=== PATIENT | female | born 1970 | race Caucasian/White ===

== ENCOUNTER 2016-04-28 19:57 | Observation (INO) ==
[2016-04-28] MEDS ORDERED: 0.9 % Sodium Chloride 1,000 ML IVC ONE (20:23)
--- NOTE | 2016-04-28 20:23 | Emergency Department Note ---
Disposition Clinical Impression: Near syncope, Abnormal liver function tests, History of cardiac arrhythmia Disposition: Admitted As Inpatient Referrals: NO,PCP [Non-Partnered Physician] - Forms: ED Satisfaction Letter General Adult HPI - General Chief complaint: ED Neuro Symptoms/Deficit Stated complaint: syncope x 4/difficulty forming words Time Seen by Provider: 04/28/16 20:20 Source: patient Limitations: no limitations - History of Present Illness HPI Narrative: 46-year-old female reports in the emergency department complaining of nearly passing out several times today. Her symptomatology started today. She states she feels like she is going to pass out but then catches herself before she completely passed out. She reports during these. She feels like she has trouble forming her words but afterwards she is able to speak normally. The patient denies any headache neck stiffness rash or fever. She has not fallen or been injured. There is no history of unilateral arm or leg weakness or numbness. There is no history of slurred speech or confusion. The patient denies chest pain shortness of breath abdominal pain vomiting or diarrhea. There is no history of currently. She is not known to be diabetic. She has had no acute back pain. There is no history of convulsion. The patient describes 4 separate events today where she was feeling like she was going to collapse and where she could not speak momentarily and then recovered without falling. The patient denies any major medical history apart from trigeminy. She denies coronary artery disease PE DVT or previous cancer. There is no history of hypertension hyperlipidemia or previous CVA. The patient has been able to ambulate without difficulty. There is no history of eliel dysarthria or slurring of the speech or drooping of the face. Her symptomatology started this morning about 8:30 in the morning. She reports 4 separate events the last one being about an hour ago. She has recovered and feels well after each event, including currently. The patient does describe a history of baseline anxiety with no exacerbations. Onset (ago): hour(s) Pain Scale: 0 - Related Data Home Medications Medication Instructions Recorded Confirmed Mucinex 04/04/15 Previous Rx's Medication Instructions Recorded HYDROcodone BIT/Homatropine LQ 5 mg PO Q6H PRN #120 ml 04/04/15 [Hycodan Syrup] Levofloxacin [Levaquin] 500 mg PO DAILY #10 tablet 04/04/15 Allergies Allergy/AdvReac Type Severity Reaction Status Date / Time Sulfa (Sulfonamide Allergy Muscle Pain Verified 04/28/16 20:07 Antibiotics) All systems ED: reviewed and negative except as stated. 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 Absent: scleral icterus, conjunctival injection, nystagmus, miosis, mydriasis, periorbital swelling - ENT ENT exam: normal exam, normal oropharynx, mucous membranes moist, TM's normal bilaterally, normal external ear exam - Neck Neck exam: Present: normal inspection, full ROM, trachea midline. Absent: tenderness, meningismus - Chest Chest inspection: Present: symmetric chest wall rise. Absent: tenderness - Respiratory Respiratory exam: Present: normal lung sounds bilaterally. Absent: respiratory distress - Cardiovascular Cardiovascular exam: Present: regular rate, normal rhythm, normal heart sounds - Abdominal Exam Abdominal exam: Present: soft, Non-Tender, normal bowel sounds. Absent: tenderness, distention, guarding, rebound, rigidity, pulsatile mass - Extremities Exam Extremities exam: Present: normal inspection, full ROM, normal capillary refill. Absent: tenderness, pedal edema, joint swelling, calf tenderness - Expanded Lower Extremity Exam Neurovascular/Tendon exam: Present: normal capillary refill, other (4 extremities warm and well perfused without cyanosis or edema.). Absent: motor deficit, sensory deficit, tendon deficit, extremity cold to touch, pallor - Back Exam Back exam: Present: normal inspection, full ROM. Absent: tenderness, CVA tenderness (R), CVA tenderness (L), vertebral tenderness - Neurological Exam Neurological exam: Present: alert, oriented X3, CN II-XII intact, normal gait. Absent: motor sensory deficit - Psychiatric Psychiatric exam: Present: normal affect, normal mood - Skin Skin exam: Present: warm, dry, intact, normal color. Absent: rash, cyanosis, diaphoresis, erythema, pallor, mottled Course Vital Signs Temperature 98.3 F 04/28/16 20:09 Pulse Rate 80 04/28/16 20:09 Respiratory Rate 20 04/28/16 20:09 Blood Pressure 132/88 04/28/16 20:09 O2 Sat by Pulse Oximetry 97 04/28/16 20:09 Temperature 98.3 F 04/28/16 20:09 Pulse Rate 66 04/28/16 21:48 Respiratory Rate 16 04/28/16 21:48 Blood Pressure 128/85 04/28/16 21:48 O2 Sat by Pulse Oximetry 100 04/28/16 21:48 Oxygen Delivery Oxygen Delivery Room Air Medical Decision Making - MDM Narrative Medical decision making narrative: The patient has had multiple episodes of near-syncope which is unusual for her. Her testing here shows slightly elevated liver enzymes but is otherwise essentially unremarkable. Based on the patient's recurrent events, I think it would be appropriate to monitor the patient on the hospital. She does not present classically for CVA or TIA and she has been symptomatic since 8:30 this morning. Her neurologic examination has remained stable and nonfocal during her stay in the emergency department. The patient describes a history of cardiac arrhythmia, trigeminy. We do not detect acute arrhythmia in the ED or anything suggestive of acute ACS. The patient does not have any leg swelling or pain she has not been coughing up blood she is low risk for PE. Her symptomatology is not consistent with acute thrombus. The patient is currently stable. I discussed the case with the hospitalist on-call who has accepted the patient to their care. - Lab Data Lab results reviewed: Yes I reviewed the patient's lab results. Result diagrams: 04/28/16 21:24 04/28/16 21:24 Lab Results 04/28/16 04/28/16 04/28/16 Range/Units 20:55 20:56 21:24 WBC (4.3-11.1) K/mcL RBC (3.82-4.97) M/mcL Hgb (11.5-15.4) g/dL Hct (35.3-44.9) % MCV (83.0-100.0) fL MCH (28.0-33.3) pg MCHC (31.6-35.5) g/dL RDW (11.5-14.5) % Plt Count (140-400) K/mcL MPV (9.4-12.4) fL Immature Gran % (0-4) % Seg Neutrophils % % Lymphocytes % % Monocytes % % Eosinophils % % Basophils % % Neutrophils # (1.6-8.9) K/mcL Lymphocytes # (0.6-4.6) K/mcL Monocytes # (0.0-1.3) K/mcL Eosinophils # (0.0-0.6) K/mcL Basophils # (0.0-0.2) K/mcL PT 10.8 (9.4-12.1) Seconds INR 1.0 APTT (26.0-36.0) Seconds Sodium (136-145) mEq/L Potassium (3.5-4.5) mEq/L Chloride (98-109) mEq/L Carbon Dioxide (19-29) mEq/L BUN (7-20) mg/dL Creatinine (0.57-1.11) mg/dL Est GFR ( Amer) (> 60) Est GFR (Non-Af Amer) (> 60) BUN/Creatinine Ratio (6-26) Glucose (70-99) mg/dL POC Glucose 97 H (58-89) Calculated Osmolality (280-300) Lactic Acid (0.5-2.2) mmol/L Calcium (8.6-10.8) mg/dL Phosphorus (2.3-4.7) mg/dL Magnesium (1.6-2.6) mg/dL Total Bilirubin (0.2-1.2) mg/dL Direct Bilirubin (0.0-0.5) mg/dL Indirect Bilirubin (0.0-1.2) mg/dL AST (5-34) Units/L ALT (0-55) Units/L Alkaline Phosphatase (38-126) Units/L Troponin I (0-0.03) ng/mL C-Reactive Protein (Less than 5) mg/L Serum Total Protein (6.0-8.3) g/dL Albumin (3.5-5.0) g/dL Globulin (2.4-3.5) g/dL Albumin/Globulin Ratio (1.1-2.2) Urine Color Yellow (Yellow) Urine Clarity Cloudy A (Clear) Urine pH 7.0 (5.0-8.0) pH Units Ur Specific [place] 1.022 (1.010-1.025) Urine Protein Negative (Neg-Trace) mg/dL Urine Glucose (UA) Normal (Normal) mg/dL Urine Ketones Negative (Negative) mg/dL Urine Blood Negative (Negative) Urine Nitrite Negative (Negative) Urine Bilirubin Negative (Negative) Urine Urobilinogen Normal (Normal) mg/dL Ur Leukocyte Esterase Small H (Negative) Urine Microscopic RBC 0-3 (0-3) per hpf Urine Microscopic WBC 3-5 H (0-3) per hpf Ur Squamous Epith Cells Many H (None-Few) per lpf Urine Bacteria None Seen (None-Few) per hpf Hyaline Casts None Seen (None-Few) per lpf Ur Culture Indicated? YES A (NO) 04/28/16 04/28/16 04/28/16 Range/Units 21:24 21:24 21:24 WBC 7.9 (4.3-11.1) K/mcL RBC 4.09 (3.82-4.97) M/mcL Hgb 12.5 (11.5-15.4) g/dL Hct 36.8 (35.3-44.9) % MCV 90.0 (83.0-100.0) fL MCH 30.6 (28.0-33.3) pg MCHC 34.0 (31.6-35.5) g/dL RDW 12.9 (11.5-14.5) % Plt Count 279 (140-400) K/mcL MPV 10.9 (9.4-12.4) fL Immature Gran % 0.3 (0-4) % Seg Neutrophils % 50.3 % Lymphocytes % 37.7 % Monocytes % 9.1 % Eosinophils % 2.0 % Basophils % 0.6 % Neutrophils # 4.0 (1.6-8.9) K/mcL Lymphocytes # 3.0 (0.6-4.6) K/mcL Monocytes # 0.7 (0.0-1.3) K/mcL Eosinophils # 0.2 (0.0-0.6) K/mcL Basophils # 0.1 (0.0-0.2) K/mcL PT (9.4-12.1) Seconds INR APTT (26.0-36.0) Seconds Sodium (136-145) mEq/L Potassium (3.5-4.5) mEq/L Chloride (98-109) mEq/L Carbon Dioxide (19-29) mEq/L BUN (7-20) mg/dL Creatinine (0.57-1.11) mg/dL Est GFR ( Amer) (> 60) Est GFR (Non-Af Amer) (> 60) BUN/Creatinine Ratio (6-26) Glucose (70-99) mg/dL POC Glucose (58-89) Calculated Osmolality (280-300) Lactic Acid 0.8 (0.5-2.2) mmol/L Calcium (8.6-10.8) mg/dL Phosphorus 4.9 H (2.3-4.7) mg/dL Magnesium 2.1 (1.6-2.6) mg/dL Total Bilirubin (0.2-1.2) mg/dL Direct Bilirubin (0.0-0.5) mg/dL Indirect Bilirubin (0.0-1.2) mg/dL AST (5-34) Units/L ALT (0-55) Units/L Alkaline Phosphatase (38-126) Units/L Troponin I (0-0.03) ng/mL C-Reactive Protein (Less than 5) mg/L Serum Total Protein (6.0-8.3) g/dL Albumin (3.5-5.0) g/dL Globulin (2.4-3.5) g/dL Albumin/Globulin Ratio (1.1-2.2) Urine Color (Yellow) Urine Clarity (Clear) Urine pH (5.0-8.0) pH Units Ur Specific [place] (1.010-1.025) Urine Protein (Neg-Trace) mg/dL Urine Glucose (UA) (Normal) mg/dL Urine Ketones (Negative) mg/dL Urine Blood (Negative) Urine Nitrite (Negative) Urine Bilirubin (Negative) Urine Urobilinogen (Normal) mg/dL Ur Leukocyte Esterase (Negative) Urine Microscopic RBC (0-3) per hpf Urine Microscopic WBC (0-3) per hpf Ur Squamous Epith Cells (None-Few) per lpf Urine Bacteria (None-Few) per hpf Hyaline Casts (None-Few) per lpf Ur Culture Indicated? (NO) 04/28/16 04/28/16 04/28/16 Range/Units 21:24 21:24 21:24 WBC (4.3-11.1) K/mcL RBC (3.82-4.97) M/mcL Hgb (11.5-15.4) g/dL Hct (35.3-44.9) % MCV (83.0-100.0) fL MCH (28.0-33.3) pg MCHC (31.6-35.5) g/dL RDW (11.5-14.5) % Plt Count (140-400) K/mcL MPV (9.4-12.4) fL Immature Gran % (0-4) % Seg Neutrophils % % Lymphocytes % % Monocytes % % Eosinophils % % Basophils % % Neutrophils # (1.6-8.9) K/mcL Lymphocytes # (0.6-4.6) K/mcL Monocytes # (0.0-1.3) K/mcL Eosinophils # (0.0-0.6) K/mcL Basophils # (0.0-0.2) K/mcL PT (9.4-12.1) Seconds INR APTT (26.0-36.0) Seconds Sodium 142 (136-145) mEq/L Potassium 4.1 (3.5-4.5) mEq/L Chloride 108 (98-109) mEq/L Carbon Dioxide 22 (19-29) mEq/L BUN 16 (7-20) mg/dL Creatinine 0.72 (0.57-1.11) mg/dL Est GFR ( Amer) > 60 (> 60) Est GFR (Non-Af Amer) > 60 (> 60) BUN/Creatinine Ratio 22 (6-26) Glucose 101 H (70-99) mg/dL POC Glucose (58-89) Calculated Osmolality 295 (280-300) Lactic Acid (0.5-2.2) mmol/L Calcium 9.2 (8.6-10.8) mg/dL Phosphorus (2.3-4.7) mg/dL Magnesium (1.6-2.6) mg/dL Total Bilirubin < 0.1 L < 0.1 L (0.2-1.2) mg/dL Direct Bilirubin 0.1 (0.0-0.5) mg/dL Indirect Bilirubin 0.0 (0.0-1.2) mg/dL AST 41 H 41 H (5-34) Units/L ALT 56 H 56 H (0-55) Units/L Alkaline Phosphatase 81 82 (38-126) Units/L Troponin I 0.00 (0-0.03) ng/mL C-Reactive Protein (Less than 5) mg/L Serum Total Protein 7.1 7.2 (6.0-8.3) g/dL Albumin 3.7 3.8 (3.5-5.0) g/dL Globulin 3.4 3.4 (2.4-3.5) g/dL Albumin/Globulin Ratio 1.1 1.1 (1.1-2.2) Urine Color (Yellow) Urine Clarity (Clear) Urine pH (5.0-8.0) pH Units Ur Specific [place] (1.010-1.025) Urine Protein (Neg-Trace) mg/dL Urine Glucose (UA) (Normal) mg/dL Urine Ketones (Negative) mg/dL Urine Blood (Negative) Urine Nitrite (Negative) Urine Bilirubin (Negative) Urine Urobilinogen (Normal) mg/dL Ur Leukocyte Esterase (Negative) Urine Microscopic RBC (0-3) per hpf Urine Microscopic WBC (0-3) per hpf Ur Squamous Epith Cells (None-Few) per lpf Urine Bacteria (None-Few) per hpf Hyaline Casts (None-Few) per lpf Ur Culture Indicated? (NO) 04/28/16 04/28/16 Range/Units 21:24 21:24 WBC (4.3-11.1) K/mcL RBC (3.82-4.97) M/mcL Hgb (11.5-15.4) g/dL Hct (35.3-44.9) % MCV (83.0-100.0) fL MCH (28.0-33.3) pg MCHC (31.6-35.5) g/dL RDW (11.5-14.5) % Plt Count (140-400) K/mcL MPV (9.4-12.4) fL Immature Gran % (0-4) % Seg Neutrophils % % Lymphocytes % % Monocytes % % Eosinophils % % Basophils % % Neutrophils # (1.6-8.9) K/mcL Lymphocytes # (0.6-4.6) K/mcL Monocytes # (0.0-1.3) K/mcL Eosinophils # (0.0-0.6) K/mcL Basophils # (0.0-0.2) K/mcL PT (9.4-12.1) Seconds INR APTT 28.5 (26.0-36.0) Seconds Sodium (136-145) mEq/L Potassium (3.5-4.5) mEq/L Chloride (98-109) mEq/L Carbon Dioxide (19-29) mEq/L BUN (7-20) mg/dL Creatinine (0.57-1.11) mg/dL Est GFR ( Amer) (> 60) Est GFR (Non-Af Amer) (> 60) BUN/Creatinine Ratio (6-26) Glucose (70-99) mg/dL POC Glucose (58-89) Calculated Osmolality (280-300) Lactic Acid (0.5-2.2) mmol/L Calcium (8.6-10.8) mg/dL Phosphorus (2.3-4.7) mg/dL Magnesium (1.6-2.6) mg/dL Total Bilirubin (0.2-1.2) mg/dL Direct Bilirubin (0.0-0.5) mg/dL Indirect Bilirubin (0.0-1.2) mg/dL AST (5-34) Units/L ALT (0-55) Units/L Alkaline Phosphatase (38-126) Units/L Troponin I (0-0.03) ng/mL C-Reactive Protein 0 (Less than 5) mg/L Serum Total Protein (6.0-8.3) g/dL Albumin (3.5-5.0) g/dL Globulin (2.4-3.5) g/dL Albumin/Globulin Ratio (1.1-2.2) Urine Color (Yellow) Urine Clarity (Clear) Urine pH (5.0-8.0) pH Units Ur Specific [place] (1.010-1.025) Urine Protein (Neg-Trace) mg/dL Urine Glucose (UA) (Normal) mg/dL Urine Ketones (Negative) mg/dL Urine Blood (Negative) Urine Nitrite (Negative) Urine Bilirubin (Negative) Urine Urobilinogen (Normal) mg/dL Ur Leukocyte Esterase (Negative) Urine Microscopic RBC (0-3) per hpf Urine Microscopic WBC (0-3) per hpf Ur Squamous Epith Cells (None-Few) per lpf Urine Bacteria (None-Few) per hpf Hyaline Casts (None-Few) per lpf Ur Culture Indicated? (NO) - Radiology Data Radiology results reviewed: Yes I reviewed the patient's radiology results.
[2016-04-28 21:04] LABS: Bilirubin,Urine Negative (Negative); Blood,Urine Negative (Negative); Clarity,Urine Cloudy (Clear); Color,Urine Yellow (Yellow); Glucose,Urine (UA) Normal (Normal); Ketones,Urine Negative (Negative); Leukocyte Esterase,Urine Small (Negative); Nitrite,Urine Negative (Negative); Protein,Urine Negative (Neg-Trace); Specific Gravity,Urine 1.022 (1.010-1.025); Urobilinogen,Urine Normal (Normal)
[2016-04-28 21:07] LABS: Bacteria,Urine None Seen per hpf (None-Few); Hyaline Casts,Urine None Seen per lpf (None-Few); RBC,Urine 0-3 per hpf (0-3); Squamous Epithelial Cell,Urine Many per lpf (None-Few)
[2016-04-28 21:34] LABS: Basophils # 0.1 K/mcL (0.0-0.2); Basophils % 0.6 %; Eosinophils # 0.2 K/mcL (0.0-0.6); Hematocrit 36.8 % (35.3-44.9); Hemoglobin 12.5 g/dL (11.5-15.4); Immature Granulocytes % 0.3 % (0-4); Lymphocytes % 37.7 %; Mean Corpuscular Hemoglobin 30.6 pg (28.0-33.3); Mean Platelet Volume 10.9 fL (9.4-12.4); Monocytes # 0.7 K/mcL (0.0-1.3); Monocytes % 9.1 %; Platelet Count 279 K/mcL (140-400); Red Blood Count 4.09 M/mcL (3.82-4.97); Red Cell Distribution Width 12.9 % (11.5-14.5); Segmented Neutrophils % 50.3 %
[2016-04-28 21:41] LABS: Prothrombin Time 10.8 Seconds (9.4-12.1)
[2016-04-28 22:07] LABS: Alanine Aminotransferase 56 Units/L (0-55); Albumin 3.8 g/dL (3.5-5.0); Albumin/Globulin Ratio 1.1 (1.1-2.2); Alkaline Phosphatase 82 Units/L (38-126); Aspartate Amino Transferase 41 Units/L (5-34); Bilirubin,Direct 0.1 mg/dL (0.0-0.5); Bilirubin,Total < 0.1 mg/dL (0.2-1.2); Globulin 3.4 g/dL (2.4-3.5); Magnesium 2.1 mg/dL (1.6-2.6); Phosphorous 4.9 mg/dL (2.3-4.7); Total Protein 7.2 g/dL (6.0-8.3)
[2016-04-28 22:08] LABS: Alanine Aminotransferase 56 Units/L (0-55); Albumin 3.7 g/dL (3.5-5.0); Albumin/Globulin Ratio 1.1 (1.1-2.2); Alkaline Phosphatase 81 Units/L (38-126); Aspartate Amino Transferase 41 Units/L (5-34); BUN/Creatinine Ratio 22 (6-26); Bilirubin,Total < 0.1 mg/dL (0.2-1.2); Blood Urea Nitrogen 16 mg/dL (7-20); Calcium 9.2 mg/dL (8.6-10.8); Carbon Dioxide 22 mEq/L (19-29); Chloride 108 mEq/L (98-109); Globulin 3.4 g/dL (2.4-3.5); Glucose 101 mg/dL (70-99); Osmolality,Calculated 295 (280-300); Potassium 4.1 mEq/L (3.5-4.5); Sodium 142 mEq/L (136-145); Total Protein 7.1 g/dL (6.0-8.3); eGFR For African Americans > 60 (> 60); eGFR For Non-African Americans > 60 (> 60)
[2016-04-28] MEDS ORDERED: Aspirin 81 MG TAB.CHEW PO ONE (22:48)
[2016-04-29] MEDS ORDERED: Naloxone 0.4 MG/ML INJ IVP PRN (02:05)
[2016-04-29] MEDS ORDERED: Acetaminophen 325 MG TABLET PO PRN (02:05)
--- NOTE | 2016-04-29 02:12 | Internal Med History&Physical ---
Date of Encounter: 04/29/16 Time of Encounter: 01:30 Assessment and Plan (1) TIA (transient ischemic attack) Current visit: Yes Status: Acute Pt reports episodes of speech disturbances. CT head is negative. Will request for MRI of head, carotid doppler, echocardiogram, PT evaluation. Qualifiers: Transient cerebral ischemia type: unspecified Qualified Code(s): G45.9 - Transient cerebral ischemic attack, unspecified (2) Near syncope Current visit: Yes Status: Acute Possibly secondary to UTI/orthostatic hypotension. Will check orthostatic vitals. (3) UTI (urinary tract infection) Current visit: Yes Status: Acute Abnormal UA x 2. Emperically treat wtih ceftriaxone. Urine cultures requested Qualifiers: Urinary tract infection type: site unspecified Hematuria presence: without hematuria Qualified Code(s): N39.0 - Urinary tract infection, site not specified (4) Abnormal liver function tests Current visit: Yes Status: Acute Recheck LFTs. Consider hepatitis panel / USG, if repeat is abnormal Internal Medicine - H&P: HPI Chief complaint: Near syncope; speech problems Admitted From: Emergency Dept Plans for Post Hospital Care: Home History of present illness: Ms. Morales is a 46 year old female diagnosed significant for multiple PVCs on holter monitoring - presented to the emergency department with history of near syncope. She reports that she was feeling foggy yesterday. 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 No LOC / incontinence. She went home and felt like she could not get words out, when she was speaking to her , in the afternoon. She on her primary care physician's office, who recommended her to go to emergency department. She denies headache, facial weakness, weakness of the extremities, chest pain, shortness of breath, cough, expectoration, fever, chills, nausea, vomiting, abdominal pain, dysuria, hematuria, bowel problems. He was evaluated in the emergency department had a negative CT scan of the head and chest x-ray. She is admitted to the hospitalist service for further management. Past Med Surg Social Fam HX - Past Medical History Medical history: other Psychiatric history: depression - Past Surgical History Surgical History: other - Social History Smoking Status: Never smoker Smokeless Tobacco Status: No Alcohol use: none Drug use: none - Family History Mother Living Status: Still Living Hx Family Cardiac Disorders: Yes Hx Family Cancer: Yes (CLL) Father Living Status: Still Living Hx Family Neurologic Disorders: Yes (stodalila) Internal Medicine - H&P: Meds Acetaminophen/Diphenhydramine [Acetaminophen Pm Caplet] 2 each PO HS 04/28/16 [ History] Allergies Sulfa (Sulfonamide Antibiotics) Allergy (Verified 04/28/16 20:07) Muscle Pain All Systems PM: A 10-system review of systems was performed and is negative for pertinent findings except as documented above in the HPI. - Constitutional Vitals: Temp Pulse Resp BP Pulse Ox 98.0 F 70 14 112/64 98 04/29/16 00:30 04/29/16 00:30 04/29/16 00:30 04/29/16 00:30 04/29/16 00:30 Exam: General: Not in acute distress at the time of my evaluation HEENT: Oral mucosa is moist. No conjunctival palor or scleral icterus Neck: No obvious neck swellings Lungs: Clear to auscultation Cardiac: Regular rate and rhythm. No significant murmurs Abdomen: Soft, non tender. Bowel sounds present Genitourinary: No tinsley catheter Neurological: Alert and oriented. No gross localizing deficits. No gross cranial nerve deficits Psych: Not aggressive or agitated Extremities: no significant leg edema Skin: No generalized rash Internal Med - H&P Results - Labs CBC & Chem 7: 04/28/16 21:24 04/29/16 04:03 - EKG Data -: EKG Interpreted by Myself EKG shows normal: sinus rhythm Rate: normal - Impressions ITS Impressions Chest X-Ray 04/28/16 20:20 IMPRESSION: No significant findings in the chest. D/ / Jeffrey Doe MD / Jeffrey Doe MD Interpreting Provider: Jeffrey Doe MD Head CT 04/28/16 20:21 IMPRESSION: No acute intracranial abnormality. D/ / Deepak Marroquin MD / Deepak Marroquin MD Interpreting Provider: Deepak Marroquin MD - VTE Reasons for not Prescribing Prophylaxis: Treatment not Indicated - Low risk for VTE
[2016-04-29 03:17] LABS: Bilirubin,Urine Negative (Negative); Blood,Urine Negative (Negative); Color,Urine Yellow (Yellow); Glucose,Urine (UA) Normal (Normal); Ketones,Urine Negative (Negative); Leukocyte Esterase,Urine Moderate (Negative); Nitrite,Urine Negative (Negative); Protein,Urine Negative (Neg-Trace); Specific Gravity,Urine 1.022 (1.010-1.025); Urobilinogen,Urine Normal (Normal)
[2016-04-29 03:18] LABS: Clarity,Urine Clear (Clear)
[2016-04-29 03:20] LABS: Bacteria,Urine Few per hpf (None-Few); Hyaline Casts,Urine None Seen per lpf (None-Few); RBC,Urine 0-3 per hpf (0-3); Squamous Epithelial Cell,Urine Many per lpf (None-Few)
[2016-04-29 04:34] LABS: Alanine Aminotransferase 55 Units/L (0-55); Albumin 3.4 g/dL (3.5-5.0); Albumin/Globulin Ratio 1.1 (1.1-2.2); Alkaline Phosphatase 74 Units/L (38-126); Aspartate Amino Transferase 36 Units/L (5-34); BUN/Creatinine Ratio 21 (6-26); Bilirubin,Total 0.5 mg/dL (0.2-1.2); Blood Urea Nitrogen 14 mg/dL (7-20); Carbon Dioxide 25 mEq/L (19-29); Chloride 109 mEq/L (98-109); Globulin 3.1 g/dL (2.4-3.5); Glucose 97 mg/dL (70-99); Osmolality,Calculated 292 (280-300); Sodium 141 mEq/L (136-145); Total Protein 6.5 g/dL (6.0-8.3); eGFR For African Americans > 60 (> 60); eGFR For Non-African Americans > 60 (> 60)
[2016-04-29 04:36] LABS: Chol/HDL Ratio 3.5 (0-4.9)
--- NOTE | 2016-04-29 15:00 | ECHO - Doppler Report ---
Echo with Saline Contrast Name: Ebony Morales Date of Study: 04/29/2016 Date: 1970 Ht: 67.0 in Medical Record#: [id number] Age: 46 Wt: 219.0 lb Gender: Female BSA: 2.1 Order #: [id number] Location: [facility] Room #: 3B34 Reading Physician: Anupam Aguirre DO, CLAUDETTE DAWN FASNC Gender Studies Professor: Angie Herr Ordering Physician: Thelma Armendariz MD Primary Physician: Stanley Martinez DO Indications: Transient Ischemic Attack Impressions: LVEF 65%. Normal LV chamber size, wall thickness and function. Normal left ventricular diastolic function. Normal right ventricular structure and function. Delayed appearance of agitated saline the the left ventricle suggestive of a pulmonary level AV malformation. No evidence of pulmonary hypertension. No significant valvular dysfunction. Left Ventricular Wall Motion: Rest Echo Findings All wall segments showed normal motion. Findings: Study Quality * Technically adequate exam. ECG Findings * Normal sinus rhythm. Left Ventricle * LVEF 65%. * Normal LV chamber size, wall thickness and function. * Normal left ventricular diastolic function. Right Ventricle * Normal right ventricular structure and function. Left Atrium * Mildly dilated left atrium. Right Atrium * Normal right atrial size. Interatrial Septum * Delayed appearance of agitated saline the the left ventricle suggestive of a pulmonary level AV malformation. Aortic Valve * Trileaflet aortic valve with normal function. * No aortic regurgitation. * No aortic stenosis. Mitral Valve * Normal mitral valve structure and function. * No mitral regurgitation. * No mitral stenosis. Tricuspid Valve * Normal tricuspid valve structure and function. * Trace tricuspid regurgitation. * No evidence of pulmonary hypertension. Pulmonic Valve * Normal pulmonic valve structure and function. * No pulmonic regurgitation. Aorta * Normally sized aortic root. Pericardium * The pericardium appears normal. IVC * Normal IVC dimensions and inspiratory collapse. Pulmonary Artery * Normal visualized portions of the main pulmonary artery. History Family History of CAD Contrast: Agitated saline 20 ml. Measurements: BP: 126/ 75 2D Normal Values RVIDd: 3.10 cm <2.7 cm IVSd: .80 cm 0.6 - 1.0 cm LVIDd: 4.80 cm 3.7 - 5.6 cm LVPWd: 1.00 cm 0.6 - 1.1 cm LVIDs: 3.40 cm 1.5 - 3.6 cm AO: 3.20 cm < 4.0 cm LA: 3.10 cm 2.0 - 4.0cm %FS: 29.20 cm >25 % LA volume: 42 Mitral Valve Peak E:.90 m/sec Peak A:.73 m/sec E/A Ratio:1.2 Peak E' Lat Shon:12.8 cm/s Peak E' Med Shon:10 cm/s E/E' Lat Ratio:7 E/E' Med Ratio:9 Tricuspid Valve TV Regurg Peak Grad: 22.00mmHg TV Regurg Peak Shon: 2.33m/sec Updated by Anupam Aguirre DO, LÓPEZ, CLAUDETTE, LOLA on 04/29/2016 2:54:58 PM electronically signed on 04/29/2016 2:55:26 PM with status of Final [employer] Pelayo: 1=Normal, 2=Hypokinesis, 3=Akinesis, 4=Dyskinesis, 5=Aneurysmal, 6=Hyperkinetic, X=Not Visualized (Blank)=Missing
--- NOTE | 2016-04-29 16:52 | Electrocardiograph Report ---
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
--- NOTE | 2016-04-29 18:49 | Event Note ---
Date of Encounter: 04/29/16 Time of Encounter: 11:00 46 Y/O F with no PMH except multiple PVCs Admitted to observation following an episode of transient receptive aphasia to r /p TIA Incidentally a UTI was diagnosed She has been asymptomatic since admission She was seen at bedside with spouse No new complains Physical Exam is unremarkable Labs and Imaging reviewed and further work up sent A/P 1. UTI: Continue current antibiotics, follow urine cultures 2. r/o TIA: ECHO showed a Pulmonary AVF, cardio has been consulted. Carotid doppler is pending. Brain MRI initially done without contrast was unremarkable for infarct but showed an hyperintense lesion, radiologist recommended Brain MRI with contrast. Brain MRI with contrast reveals a hyperintense lesion in the left temporal lobe with multiple differentials including a demyelinating lesion , post-traumatic or low grade glioma. Neurology consult will be placed. Patient is hemodynamically stable Continue current care
--- NOTE | 2016-04-29 19:16 | Carotid Imaging Report ---
Carotid Duplex Patient Name:Ebony Morales Order Number:[id number] Procedure Date:04/29/2016 Date:1970Age:46 yrs Gender:Female Location:[facility] Room #: 3B34 Tax Accounting Manager:Angie Sanchez MD:Thelma Armendariz MD manager testing:DO Christiano Rosa MD:Ray Valenzulea MD , [facility] Risk Factors Yes/No Hypertension No Diabetes No Hypercholesterolemia No Impressions: Findings: Bilateral carotid systems are essentially normal. Recommendations: After imaging the patient returned to their room. Findings Carotid Duplex: Right: The right proximal common carotid artery has a PSV of 69 cm/s and a EDV of 24 cm/s. The right mid common carotid artery has a PSV of 94 cm/s and a EDV of 33 cm/s. The right distal common carotid artery has a PSV of 68 cm/s and a EDV of 29 cm/s. The right bifurcation has a PSV of 62 cm/s and a EDV of 26 cm/s. The right proximal internal carotid artery has a PSV of 69 cm/s and a EDV of 25 cm/s. The right mid internal carotid artery has a PSV of 80 cm/s and a EDV of 30 cm/s. The right distal internal carotid artery has a PSV of 105 cm/s and a EDV of 52 cm/s. The right eca has a PSV of 85 cm/s and a EDV of 23 cm/s. The right vertebral artery has a PSV of 33 cm/s and a EDV of 14 cm/s. Left: The left proximal common carotid artery has a PSV of 101 cm/s and a EDV of 36 cm/s. The left mid common carotid artery has a PSV of 89 cm/s and a EDV of 32 cm/s. The left distal common carotid artery has a PSV of 76 cm/s and a EDV of 33 cm/s. The left bifurcation has a PSV of 83 cm/s and a EDV of 29 cm/s. The left proximal internal carotid artery has a PSV of 75 cm/s and a EDV of 36 cm/s. The left mid internal carotid artery has a PSV of 97 cm/s and a EDV of 51 cm/s. The left distal internal carotid artery has a PSV of 87 cm/s and a EDV of 26 cm/s. The left eca has a PSV of 64 cm/s and a EDV of 17 cm/s. The left vertebral artery has a PSV of 31 cm/s and a EDV of 15 cm/s. Carotid Results Right PSV EDV Assessment Proximal CCA 69 24 Mid CCA 94 33 Distal CCA 68 29 Bifurcation 62 26 Proximal ICA 69 25 Mid ICA 80 30 Distal ICA 105 52 ECA 85 23 Vertebral Artery 33 14 Left PSV EDV Assessment Proximal CCA 101 36 Mid CCA 89 32 Distal CCA 76 33 Bifurcation 83 29 Proximal ICA 75 36 Mid ICA 97 51 Distal ICA 87 26 ECA 64 17 Vertebral Artery 31 15 Ratio's Right ICA/CCA Ratio: 1.18 ICA/CCA Values: 105/94 Left ICA/CCA Ratio: 1.10 ICA/CCA Values: 97/89 Updated by Ray Valenzuela MD, FACS on 04/29/2016 7:11:10 PM Ray Valenzuela MD electronically signed on 04/29/2016 7:11:46 PM with status of Final
--- NOTE | 2016-04-30 12:06 | Cardiology Consult Note ---
<Titi Singh Colleen - Last Filed: 04/30/16 12:14> Date of Encounter: 04/30/16 Time of Encounter: 12:01 Assessment and Plan (1) Abnormal echocardiogram Current Visit: Yes Status: Acute EF preserved 65%, but pulmonary level AV malformation noted, new diagnosis. Pt is at increased risk of arrhythmias--recommend event monitor or loop recorder as outpt. Telemetry reviewed--no evidence of arrythmias. Given she had a probable TIA and has a pulmonary level AV malformation, Dr. Medel recommends ASA and Plavix. Will plan to start tomorrow AM and as long as okay with neurology who has been consulted for her abnormal brain MRI. Cardiology signing off. Reconsult PRN. Follow-up as outpt in 2-3 weeks. Discussion w patient/family: The assessment and plan as outlined above was discussed with the patient and/or family members who expressed understanding and agreement. All questions were answered. Thank you for involving us in the care of your patient. Please call with any questions. I will discuss all the above with Dr. Medel and make changes as necessary. History of Present Illness Consult date: 04/30/16 Requesting physician: Nahid Armendariz Consult reason: ASD on echo Chief complaint: near syncope, aphasia History of present illness: Ms. 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 She on her primary care physician's office, who recommended her to go to ED. She reports chest tightness when anxious or stressed, but no exertional chest pain. Echo was obtained, shows preserved EF 65%, but pt found to have pulmonary level AV malformation. Had a brain MRI which was abnormal, showing a hyperintense lesion--neuro consulted. Also being treated for UTI. Past Med Surg Social Fam HX - Past Medical History Medical history: other Psychiatric history: depression - Past Surgical History Surgical History: other - Social History Smoking Status: Never smoker Smokeless Tobacco Status: No Alcohol use: none Drug use: none - Family History Mother Living Status: Still Living Hx Family Cardiac Disorders: Yes Hx Family Cancer: Yes (CLL) Father Living Status: Still Living Hx Family Neurologic Disorders: Yes (stoke) Medications and Allergies Acetaminophen/Diphenhydramine [Acetaminophen Pm Caplet] 2 each PO HS 04/28/16 [ History] Allergies Sulfa (Sulfonamide Antibiotics) Allergy (Verified 04/28/16 20:07) Muscle Pain All Systems Review: A 10-system review of systems was performed and is negative for pertinent findings except as documented above in the HPI. - Cardiovascular Cardiovascular: as per HPI, lightheadedness Physical Examination Vital Signs, Last 4 Hours Temp Pulse Resp BP Pulse Ox 04/30/16 08:08 97.9 F 69 16 115/80 100 Vital Signs Temp Pulse Resp BP Pulse Ox 04/30/16 12:11 97.5 F L 71 16 104/73 95 04/30/16 08:08 97.9 F 69 16 115/80 100 04/30/16 03:50 98.0 F 67 14 101/68 98 04/30/16 00:02 98.0 F 73 16 103/68 97 04/29/16 19:18 97.6 F 72 14 118/72 99 04/29/16 15:00 97.7 F 64 16 124/81 100 Intake and Output 04/29/16 04/30/16 04/30/16 23:59 07:59 15:59 Intake Total 240 / 240 Balance 240 / 240 Intake: Oral 240 / 240 Other: Meal Breakfast Percent of Meal Consumed 100% # Voids 1 Weight 97.5 kg Patient Weight 04/30/16 23:59 Weight 97.5 kg General: Conversant, No Apparent Distress HEENT: Atraumatic, Normocephaly, Mucus Membranes Moist Neck: No JVD, Normal carotid pulses Cardiac: Reg Rate and Rhythm, Normal S1 and S2, No Murmur Lungs: Normal Breath Sounds Neuro: Alert and responsive, No focal deficits noted Abdomen: Soft, Non-Tender Skin: No rashes noted on visualized skin Musculoskeletal: No Chest Wall Tenderness Extremities: No Clubbing, No Cyanosis, No Edema, Normal Pulses Results 04/28/16 21:24 04/29/16 04:03 Impressions Brain MRI 04/29/16 02:08 IMPRESSION: 1. Nonspecific focus of T2 FLAIR hyperintensity within the subcortical white matter of the mesial left temporal lobe. Consider further evaluation with postcontrast MRI of the brain. 2. Otherwise, unremarkable noncontrast MRI of the brain. D/ / Sim Villagomez MD / Sim Villagomez MD Interpreting Provider: Sim Villagomez MD Brain MRI 04/29/16 16:51 IMPRESSION: 1. The T2 FLAIR hyperintense lesion in the left temporal lobe does not demonstrate associated enhancement. Diagnostic considerations are vast, but include a demyelinating lesion, posttraumatic or perhaps a low grade glioma. Suggest a follow-up examination in 6-12 months to evaluate for stability. 2. 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 D/ / Sim Villagomez MD / Sim Villagomez MD Interpreting Provider: Sim Villagomez MD Active Medications Acetaminophen (Tylenol) 650 mg PO Q6HR PRN PRN Reason: Mild Pain (1-3) Stop: 10/29/16 02:06 Ceftriaxone Sodium 1,000 mg/ (Dextrose) 100 mls @ 200 mls/hr IVPB Q24H FRENCH Stop: 10/29/16 07:21 Last Admin: 04/30/16 06:22 Dose: 200 mls/hr Naloxone HCl (Narcan) 0.4 mg IVP Q2MIN PRN PRN Reason: Opioid Reversal Stop: 10/29/16 02:06 - Imaging and Cardiology Echo: report reviewed - EKG Interpretation EKG results cardiology: personally reviewed (SR), other (12 hour tele AVG HR 66 , SR.) Consult Discharge Plan - Plan Referrals: Stanley Martinez, DO [Primary Care Provider] - (Please follow up in the 5-[address] Martinez. Thank You! ) <Kiko Medel - Last Filed: 04/30/16 13:28> Date of Encounter: 04/30/16 Assessment and Plan Discussion w patient/family: The assessment and plan as outlined above was discussed with the patient and/or family members who expressed understanding and agreement. All questions were answered. Thank you for involving us in the care of your patient. Please call with any questions. History of Present Illness History of present illness: Ms. Morales is a 46 year old female All Systems Review: A 10-system review of systems was performed and is negative for pertinent findings except as documented above in the HPI. Physical Examination Vital Signs, Last 4 Hours Temp Pulse Resp BP Pulse Ox 04/30/16 12:11 97.5 F L 71 16 104/73 95 Results 04/28/16 21:24 04/29/16 04:03 Attestation: My signature below is to certify that this patient is under my care and that I, or nurse practitioner, or a physician's material assistant working with me, has a face-to -face encounter with this patient. Patient was seen an examined. Agree with plan as outlined TIA - with unclear etiology. Pulm AVM noted ASA/Plavix seem reasonable unless Neuro disagrees Additional work up and MRI findings deferred to Neuro and others Would recommend outpt event monitor to assess for silent arrhythmias Outpt cardiology follow up. Will sign off - call if questions.
[2016-04-30 14:51] VITALS: BP 125/85
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
--- NOTE | 2016-04-30 18:10 | Discharge Summary ---
Date of Encounter: 04/30/16 Time of Encounter: 18:04 - Discharge Diagnosis (1) Abnormal MRI of head Priority: Primary Status: Acute (2) Abnormal echocardiogram Priority: Primary Status: Acute (3) TIA (transient ischemic attack) Priority: Primary Status: Acute Qualifiers: Transient cerebral ischemia type: unspecified Qualified Code(s): G45.9 - Transient cerebral ischemic attack, unspecified (4) UTI (urinary tract infection) Priority: Primary Status: Acute Qualifiers: Urinary tract infection type: site unspecified Hematuria presence: without hematuria Qualified Code(s): N39.0 - Urinary tract infection, site not specified - Discharge Medications Prescriptions: Aspirin 81 mg PO DAILY #30 tab.chew Cefdinir [Omnicef] 300 mg PO DAILY #7 capsule Clopidogrel Bisulfate [Plavix] 75 mg PO DAILY #30 tablet Home Medications: Acetaminophen/Diphenhydramine [Acetaminophen Pm Caplet] 2 each PO HS 04/28/16 [ History] Aspirin 81 mg PO DAILY #30 tab.chew 04/30/16 [Rx] Cefdinir [Omnicef] 300 mg PO DAILY #7 capsule 04/30/16 [Rx] Clopidogrel Bisulfate [Plavix] 75 mg PO DAILY #30 tablet 04/30/16 [Rx] Allergies/Adverse Reactions: Allergies Sulfa (Sulfonamide Antibiotics) Allergy (Verified 04/28/16 20:07) Muscle Pain Procedures/tests Complete & Pending: Procedures Performed prior 72 hours Category Date Time Status MR head/brain w con [MR] Stat MRI 04/29/16 16:51 Completed MR head/brain wo con [MR] Routine MRI 04/29/16 02:08 Completed EV carotid duplex imaging BI Routine Y 04/29/16 02:08 Completed EV echocardiogram Routine Y 04/29/16 02:08 Completed Date of admission: 04/28/16 23:09 Primary care physician: Stanley Macias Colopy Consults: 04/29/16 02:07 Consult to Physical Therapy [CONS] Routine Comment: Evaluate, develop and implement POC 04/29/16 16:54 Consult to Cardiology [CONS] Routine Comment: Consulting Provider: Card[facility] Reason for Consult: Abnormal ECHO Call Completed: No 04/29/16 18:42 Consult to Neurology [CONS] Routine Consulting Provider: [facility] Reason for Consult: Abnormal MRI , patient with Transient speech abnormality , kindly review Call Completed: No Discharging clinician: Jeffery Alvarez Anticipated date of discharge: 04/30/16 - Patient Status Disposition: Home, Self-Care Condition: Good Functional capacity at discharge: independent ambulation Overall status at discharge: patient is back to baseline - Discharge Instructions Follow Up With: Stanley Martinez DO [Primary Care Provider] - (Please follow up in the 5-[address] Martinez. Thank You! ) Additional Instructions: FOllow up with Cardiology, Follow up with Neurology - Diet and Activity Activity: resume usual activities as tolerated Diet: low salt diet Interval History: See below Hospital course: Ms. Morales is a 46 year old female with no PMH except multiple PVCs Admitted to observation following an episode of transient receptive aphasia to r /o TIA Incidentally a UTI was diagnosed She has been asymptomatic since admission ECHO showed a Pulmonary AVF, cardio has been consulted. Carotid doppler is pending. Brain MRI initially done without contrast was unremarkable for infarct but showed an hyperintense lesion, radiologist recommended Brain MRI with contrast. Brain MRI with contrast reveals a hyperintense lesion in the left temporal lobe with multiple differentials including a demyelinating lesion, post -traumatic or low grade glioma.She also had venous anomaly in the left cerebellum Cardiology and neurology were consulted Given she had a probable TIA and has a pulmonary level AV malformation, cardiology recommended ASA and Plavix, she will be discharged on same, neurology agrees with this plan of anticoagulation Neurology recommends a repeat Brain MRI few months after discharge and follow up with Neuro Urine culture was no growth, will discharge on Omnicef Plan of care discussed, verbalized understanding - Time Spent with Patient Total time spent providing and/or coordinating discharge services: Less than 30 minutes - Constitutional Vitals: Temp Pulse Resp BP Pulse Ox 97.8 F 82 16 125/85 92 L 04/30/16 14:48 04/30/16 14:48 04/30/16 14:48 04/30/16 14:48 04/30/16 14:48 General appearance: Present: A&O X 3, pleasant, no acute distress - Head Head exam: Present: atraumatic, normocephalic - Eye Eye exam: Present: PERRL, conjuntiva pink, sclera anicteric Pupils: Present: PERRL - Neck Neck exam general surgery: Present: supple, trachea midline. Absent: lymphadenopathy - Respiratory Respiratory exam: Present: CTAB. Absent: accessory muscle use, rales, rhonchi, wheezes - Cardiovascular Cardiovascular exam: Present: RRR, +S1, +S2. Absent: diastolic murmur, gallop, rubs, systolic murmur - GI/Abdominal GI/Abdominal exam: Present: normal bowel sounds, soft, no peritoneal signs. Absent: distended, tenderness - Extremities Exam Extremities exam: Present: warm, radial pulses palpable and symetrical. Absent : calf tenderness, cyanotic, pedal edema - Neurological Exam Neurological exam: Present: CN II-XII intact, oriented X3, no focal deficits. Absent: pronater drift, facial droop, speech deficit - Skin Skin exam: Present: dry - VTE Reasons for not Prescribing Prophylaxis: Treatment not Indicated - Low risk for VTE
[2016-05-01] MEDS ORDERED: Aspirin 81 MG TAB.CHEW PO SCH (09:00)
== END 2016-04-30 19:03 | disposition home or self-care (01) ==
LOC: EMEROO 19:57 → 3BNU 19:57 → SUATTDRO 23:09 → 3BNU 04-29 00:19
PROVIDERS: ADMIT Hospitalist; ATTEND Internal Medicine